=== PATIENT | male | born 2000 | race Two or more races ===

== ENCOUNTER 2018-05-29 20:13 | Emergency (ER) | payer OTHER ==
[~2018-05-29] VITALS: Ht 167.6 cm; Wt 77.3 kg
[2018-05-29 21:26] LABS: APPEARANCE,URINE CLEAR (CLEAR); BILIRUBIN,URINE NEGATIVE (NEGATIVE); GLUCOSE, URINE (UA) NEGATIVE (NEGATIVE); KETONES,URINE 40 mg/dL (NEGATIVE); LEUKOCYTE ESTERASE ,URINE NEGATIVE (NEGATIVE); NITRATE,URINE NEGATIVE (NEGATIVE); OCCULT BLOOD,URINE NEGATIVE (NEGATIVE); PH,URINE 5.5 (5.0-8.0); PROTEIN,URINE TRACE (NEGATIVE); UROBILINOGEN,URINE 0.2 mg/dL (<=1.0)
[2018-05-29 21:29] LABS: BASOPHILS % (AUTO) 0.4 % (0.0-2.0); EOSINOPHILS % (AUTO) 0.4 % (1.0-6.0); HEMATOCRIT 45.8 % (41-53); HEMOGLOBIN 15.8 g/dL (13.5-17.5); LYMPHOCYTES # (AUTO) 0.5 K/uL (1.0-4.8); LYMPHOCYTES % (AUTO) 3.8 % (22.0-44.0); MEAN CORPUSCULAR HEMOGLOBIN 29.2 pg (26.0-34.0); MEAN CORPUSCULAR HGB CONC 34.5 G/dL (31.0-37.0); MEAN CORPUSCULAR VOLUME 85 fL (80-100); MONOCYTES # (AUTO) 0.4 K/uL (0.1-1.0); MONOCYTES % (AUTO) 3.1 % (2.0-9.0); NEUTROPHILS # (AUTO) 13.2 K/uL (1.8-7.7); PLATELET COUNT (AUTO) 258 K/uL (150-450); RED CELL DISTRIBUTION WIDTH 13.1 % (11.5-14.5)
[2018-05-29 21:31] LABS: NEUTROPHILS % (AUTO) 92.3 % (40.0-70.0)
[2018-05-29 21:38] LABS: ANION GAP 12 mmol/L (8-16); CALCIUM, TOTAL 9.8 mg/dL (8.8-10.5); CARBON DIOXIDE 27 mmol/L (22-29); CHLORIDE 100 mmol/L (98-107); CREATININE 0.95 mg/dL (0.60-1.30); GLOMERULAR FILTR. RATE CALC > 60 mL/min (>60); GLUCOSE,RANDOM 103 mg/dL (70-110); POTASSIUM 3.9 mmol/L (3.5-5.1); SODIUM SERUM 139 mmol/L (136-145); UREA NITROGEN, BLOOD 17 mg/dL (7-18)
[2018-05-29 21:44] LABS: ALANINE AMINOTRANSFERASE 40 U/L (12-78); ALBUMIN 4.4 g/dL (3.4-5.0); ALKALINE PHOSPHATASE 77 U/L (46-116); ASPARTATE AMINOTRANSFERASE 38 U/L (15-37); BILIRUBIN,TOTAL 0.6 mg/dL (0.1-1.0); LIPASE 141 U/L (73-393); TOTAL PROTEIN, SERUM 9.1 g/dL (6.4-8.2)
[2018-05-29] MEDS ORDERED: SODIUM CHLORIDE 0.9% 1,000 ML IV ONE (23:00)
[2018-05-29] MEDS ORDERED: ONDANSETRON HCL 4 MG/2 ML VIAL IVP ONE (23:00)
[2018-05-29] MEDS ORDERED: KETOROLAC TROMETHAMINE 30 MG/ML VIAL IVP ONE (23:00)
[2018-05-30 00:35] VITALS: BP 102/73
== END 2018-05-30 00:54 | disposition home or self-care (01) ==
LOC: EMS 20:14
DX: R10.84 Generalized abdominal pain (principal); R11.2 Nausea with vomiting, unspecified; R19.7 Diarrhea, unspecified
CPT/HCPCS: 36415; 80053; 81003; 83690; 85025; 96361; 96374; 96375; 99283; J1885; J2405; J7030

== ENCOUNTER 2021-10-21 05:55 | Emergency (ER) | payer OTHER ==
[~2021-10-21] VITALS: Ht 170.2 cm; Wt 81.8 kg
[2021-10-21 07:26] VITALS: BP 143/97
== END 2021-10-21 07:47 | disposition home or self-care (01) ==
LOC: EMS 05:56
DX: S80.12XA Contusion of left lower leg, initial encounter (principal); S80.11XA Contusion of right lower leg, initial encounter; F10.20 Alcohol dependence, uncomplicated; X58.XXXA Exposure to other specified factors, initial encounter; Y93.6A Activity, physical games generally associated with school recess, summer camp and children; Y92.89 Other specified places as the place of occurrence of the external cause; Y99.8 Other external cause status
CPT/HCPCS: 99284; 73590-TC; 73610-TC; Z7502

== ENCOUNTER 2022-05-05 23:05 | Emergency (ER) | payer OTHER ==
[~2022-05-05] VITALS: Ht 170.2 cm; Wt 100.0 kg
[2022-05-06 01:09] VITALS: BP 119/82
== END 2022-05-06 01:14 | disposition home or self-care (01) ==
LOC: EMS 23:05
DX: R04.0 Epistaxis (principal); F10.20 Alcohol dependence, uncomplicated
CPT/HCPCS: 99281; Z7502

== ENCOUNTER 2022-05-26 20:55 | Emergency (ER) | payer OTHER ==
[~2022-05-26] VITALS: Ht 170.2 cm; Wt 95.5 kg
[2022-05-26 21:10] LABS: COVID AG,FIA SOURCE NASAL SWAB
[2022-05-26 21:33] LABS: INFLUENZA TYPE A NEGATIVE FOR TYPE A (NEGATIVE); INFLUENZA TYPE B NEGATIVE FOR TYPE B (NEGATIVE)
[2022-05-26] MEDS ORDERED: SODIUM CHLORIDE 0.9% 1,000 ML IV ONE (23:15)
[2022-05-26] MEDS ORDERED: ONDANSETRON HCL 4 MG/2 ML VIAL IVP ONE (23:15)
[2022-05-27] MEDS ORDERED: ACETAMINOPHEN 500 MG TABLET PO ONE (00:30)
[2022-05-27] MEDS ORDERED: IBUPROFEN 600 MG TABLET PO ONE (00:30)
[2022-05-27] MEDS ORDERED: GuaiFENesin/D-METHORPHAN [SUGAR-FREE] 200-20MG/10 ML SYRUP UDCUP PO ONE (00:30)
[2022-05-27 00:53] LABS: ANION GAP 9 mmol/L (8-16); CALCIUM, TOTAL 9.6 mg/dL (8.8-10.5); CARBON DIOXIDE 27 mmol/L (22-29); CHLORIDE 100 mmol/L (98-107); CREATININE 1.14 mg/dL (0.60-1.30); GLUCOSE,RANDOM 121 mg/dL (70-110); SODIUM SERUM 136 mmol/L (136-145); UREA NITROGEN, BLOOD 23 mg/dL (7-18)
[2022-05-27 00:58] LABS: GLOMERULAR FILTR. RATE CALC > 60 mL/min (>60)
[2022-05-27 00:59] LABS: ALANINE AMINOTRANSFERASE 61 U/L (12-78); ALBUMIN 4.1 g/dL (3.4-5.0); ALKALINE PHOSPHATASE 100 U/L (46-116); ASPARTATE AMINOTRANSFERASE 25 U/L (15-37); BILIRUBIN,TOTAL 0.4 mg/dL (0.1-1.0); LIPASE 72 U/L (73-393); TOTAL PROTEIN, SERUM 9.2 g/dL (6.4-8.2)
[2022-05-27 01:39] LABS: BASOPHILS % (AUTO) 0.2 % (0.0-2.0); EOSINOPHILS % (AUTO) 0.1 % (1.0-6.0); HEMATOCRIT 41.1 % (41-53); HEMOGLOBIN 13.9 g/dL (13.5-17.5); LYMPHOCYTES # (AUTO) 0.5 K/uL (1.0-4.8); LYMPHOCYTES % (AUTO) 3.3 % (22.0-44.0); MEAN CORPUSCULAR HEMOGLOBIN 28.6 pg (26.0-34.0); MEAN CORPUSCULAR VOLUME 84 fL (80-100); MONOCYTES # (AUTO) 0.4 K/uL (0.1-1.0); MONOCYTES % (AUTO) 2.5 % (2.0-9.0); NEUTROPHILS # (AUTO) 14.9 K/uL (1.8-7.7); PLATELET COUNT (AUTO) 280 K/uL (150-450); RED BLOOD CELL COUNT(AUTO) 4.88 MIL/uL (4.50-5.90)
[2022-05-27 01:51] LABS: NEUTROPHILS % (AUTO) 93.9 % (40.0-70.0)
[2022-05-27 01:54] VITALS: BP 106/74
[2022-05-27] MEDS ORDERED: ACET-66 PO (01:56)
[2022-05-27] MEDS ORDERED: IBUP-1554 PO (01:56)
[2022-05-27] MEDS ORDERED: GUAIFDM PO (01:56)
== END 2022-05-27 02:29 | disposition home or self-care (01) ==
LOC: EMS 20:55
DX: R10.10 Upper abdominal pain, unspecified (principal); Z20.822 Contact with and (suspected) exposure to COVID-19; F10.20 Alcohol dependence, uncomplicated; J06.9 Acute upper respiratory infection, unspecified; R10.13 Epigastric pain
CPT/HCPCS: 99284; 96374; 96361; 87426; 80053; 83690; 85025; 87804; 36415; 93005; G0480; J2405; J7030

== ENCOUNTER 2023-05-20 12:41 | Emergency (ER) | payer OTHER ==
[~2023-05-20] VITALS: Ht 170.2 cm; Wt 108.2 kg
[~2023-05-20 12:41] MED LIST: ACET-66 PO; GUAIFDM PO; IBUP-1554 PO
[2023-05-20] MEDS ORDERED: ISOT30CA14 PO (12:58)
[2023-05-20] MEDS ORDERED: SODIUM CHLORIDE 0.9% 1,000 ML IV ONE ×2 (13:15→15:15)
[2023-05-20] MEDS ORDERED: CLIN60LO6 TP (13:21)
[2023-05-20] MEDS ORDERED: ISOT20CA PO (13:21)
[2023-05-20] MEDS ORDERED: LIFI1DRO OU (13:21)
[2023-05-20] MEDS ORDERED: ONDANSETRON HCL 4 MG/2 ML VIAL IVP ONE (13:30)
[2023-05-20 13:54] LABS: BASOPHILS % (AUTO) 0.6 % (0.0-2.0); EOSINOPHILS % (AUTO) 0.2 % (1.0-6.0); HEMATOCRIT 41.2 % (41-53); HEMOGLOBIN 14.1 g/dL (13.5-17.5); LYMPHOCYTES # (AUTO) 1.1 K/uL (1.0-4.8); LYMPHOCYTES % (AUTO) 7.6 % (22.0-44.0); MEAN CORPUSCULAR HEMOGLOBIN 28.8 pg (26.0-34.0); MEAN CORPUSCULAR HGB CONC 34.3 G/dL (31.0-37.0); MEAN CORPUSCULAR VOLUME 84 fL (80-100); MONOCYTES # (AUTO) 0.7 K/uL (0.1-1.0); MONOCYTES % (AUTO) 5.2 % (2.0-9.0); NEUTROPHILS # (AUTO) 12.4 K/uL (1.8-7.7); NEUTROPHILS % (AUTO) 86.4 % (40.0-70.0); PLATELET COUNT (AUTO) 285 K/uL (150-450); RED BLOOD CELL COUNT(AUTO) 4.91 MIL/uL (4.50-5.90); RED CELL DISTRIBUTION WIDTH 13.1 % (11.5-14.5); WHITE BLOOD COUNT (AUTO) 14.4 K/uL (4.5-11.0)
[2023-05-20 14:06] LABS: ANION GAP 13 mmol/L (8-16); CALCIUM, TOTAL 9.3 mg/dL (8.8-10.5); CARBON DIOXIDE 25 mmol/L (22-29); CHLORIDE 98 mmol/L (98-107); CREATININE 0.98 mg/dL (0.60-1.30); GLOMERULAR FILTR. RATE CALC > 60 mL/min (>60); GLUCOSE,RANDOM 118 mg/dL (70-110); POTASSIUM 3.9 mmol/L (3.5-5.1); SODIUM SERUM 136 mmol/L (136-145); UREA NITROGEN, BLOOD 14 mg/dL (7-18)
[2023-05-20 14:10] LABS: ALANINE AMINOTRANSFERASE 42 U/L (12-78); ALKALINE PHOSPHATASE 96 U/L (46-116); ASPARTATE AMINOTRANSFERASE 19 U/L (15-37); BILIRUBIN,TOTAL 0.4 mg/dL (0.1-1.0); LIPASE 36 U/L (16-77); TOTAL PROTEIN, SERUM 9.2 g/dL (6.4-8.2)
[2023-05-20 14:52] VITALS: TEMP 99.5
[2023-05-20] MEDS ORDERED: DIPHENOXYLATE/ATROP 2.5-0.025 MG TABLET PO ONE (15:15)
[2023-05-20] MEDS ORDERED: ACETAMINOPHEN 500 MG TABLET PO ONE (15:15)
[2023-05-20 15:22] VITALS: BP 107/69; PULSE 120; RESP 20
[2023-05-20 16:11] LABS: APPEARANCE,URINE CLEAR (CLEAR); BILIRUBIN,URINE NEGATIVE (NEGATIVE); COLOR,URINE YELLOW (YELLOW); GLUCOSE, URINE (UA) NEGATIVE (NEGATIVE); KETONES,URINE NEGATIVE (NEGATIVE); LEUKOCYTE ESTERASE ,URINE NEGATIVE (NEGATIVE); NITRATE,URINE NEGATIVE (NEGATIVE); OCCULT BLOOD,URINE NEGATIVE (NEGATIVE); PROTEIN,URINE TRACE mg/dL (NEGATIVE); SPECIFIC GRAVITIY, URINE 1.027 (1.003-1.030); UROBILINOGEN,URINE <=1.0 mg/dL (<=1.0)
[2023-05-20] MEDS ORDERED: ONDA-104 PO (17:21)
[2023-05-20] MEDS ORDERED: DIPH-654 PO (17:21)
[2023-05-20] MEDS ORDERED: ACET-66 PO (17:21)
== END 2023-05-20 17:31 | disposition home or self-care (01) ==
LOC: EMS 12:41
DX: K52.9 Noninfective gastroenteritis and colitis, unspecified (principal); R10.84 Generalized abdominal pain
CPT/HCPCS: 99285; 74176; 96374; 96361; 80053; 81003; 83690; 85025; 36415; 93005; J2405; J7030